=== PATIENT | male | born 1970 | race Caucasian/White ===

== ENCOUNTER 2019-06-29 18:06 | Emergency (ER) | payer OTHER ==
[~2019-06-29] VITALS: Ht 185.4 cm; Wt 109.1 kg
[2019-06-29 18:17] VITALS: TEMP 97.7
[2019-06-29] MEDS ORDERED: PRINIVIL20 MG PO (18:49)
[2019-06-29] MEDS ORDERED: AMOXICILLIN 8751 TAB PO (20:10)
[2019-06-29] MEDS ORDERED: NORCO 325 MG-7.1 TAB PO (20:17)
[2019-06-29 20:30] VITALS: BP 113/73; PULSE 84
== END 2019-06-29 20:31 | disposition home or self-care (01) ==
LOC: COL.ER 18:06
DX: S61.412A Laceration without foreign body of left hand, initial encounter (principal); S61.432A Puncture wound without foreign body of left hand, initial encounter; I10 Essential (primary) hypertension; Z23 Encounter for immunization; W54.0XXA Bitten by dog, initial encounter; Y92.009 Unspecified place in unspecified non-institutional (private) residence as the place of occurrence of the external cause